=== PATIENT | female | born 2000 | race African-American/Black ===

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

== ENCOUNTER 2019-12-30 08:25 | Emergency (ER) | payer OTHER, SELFPAY ==
[2019-12-30] MEDS ORDERED: Ondansetron ODT 4 MG TAB ONE (09:00)
[2019-12-31 12:47] LABS: SARS-CoV-2 MS2 Positive; SARS-CoV-2 N Gene Negative; SARS-CoV-2 S Gene Negative; SARS-CoV-2 orf1ab Negative
== END 2019-12-30 09:11 | disposition home or self-care (01) ==
LOC: ERS 08:25
DX: Z20.828 Contact with and (suspected) exposure to other viral communicable diseases (principal); F17.210 Nicotine dependence, cigarettes, uncomplicated
CPT/HCPCS: 87635; 99283; Q0162; U0003

== ENCOUNTER 2020-03-29 17:17 | Emergency (ER) | payer OTHER, SELFPAY ==
[2020-03-29] MEDS ORDERED: diphenhydrAMINE 50 MG/ML VIAL ONE (20:19)
[2020-03-29] MEDS ORDERED: Metoclopramide HCl 10 MG/2 ML VIAL ONE ×2 (20:19→20:28)
[2020-03-29] MEDS ORDERED: Ketorolac Tromethamine 30 MG/ML VIAL ONE (20:19)
== END 2020-03-29 22:36 | disposition home or self-care (01) ==
LOC: ERS 17:17
DX: R51.9 Headache, unspecified (principal); J45.909 Unspecified asthma, uncomplicated; F17.210 Nicotine dependence, cigarettes, uncomplicated
CPT/HCPCS: J1200; J1885; J2765